=== PATIENT | male | born 1945 | race Two or more races ===

== ENCOUNTER 2020-03-22 08:17 | Outpatient (CLI) | payer MEDICARE | END 2020-03-22 23:59 | disposition home or self-care (01) | LOC: CFH 08:17 | PROVIDERS: ATTEND Internal Medicine | DX: N62 Hypertrophy of breast (principal); N63.20 Unspecified lump in the left breast, unspecified quadrant | CPT/HCPCS: 76642; 77066; G0279 ==

== ENCOUNTER 2021-06-11 14:26 | Outpatient (CLI) | payer MEDICARE ==
[~2021-06-11 14:26] MED LIST: LEVO25TA4 PO; MYCO250C4 PO; SULF500T36 PO
== END 2021-06-11 23:59 | disposition home or self-care (01) ==
LOC: CFH 14:26
PROVIDERS: ATTEND Internal Medicine
DX: N62 Hypertrophy of breast (principal); N63.10 Unspecified lump in the right breast, unspecified quadrant
CPT/HCPCS: 76642; 77062; 77066; G0279